=== PATIENT | male | born 1945 | race Caucasian/White ===

== ENCOUNTER → 2016-12-27 | Outpatient (REF) | payer MEDICARE ==
[~2016-12-27] MED LIST: APPL188C PO; ASPI1TAB PO; GRAP100C PO; LOSA50TA5 PO; OMEP40CA2 PO; VITA100L PO; [UNRECOGNIZED DRUG - OTHER]
[2016-12-27 17:15] LABS: ALBUMIN 3.9 GM/DL (3.2-5.2); ALBUMIN/GLOBULIN RATIO 1.18 (1.00-1.93); ALKALINE PHOSPHATASE 43 U/L (45-117); ALT/SGPT 74 U/L (12-78); ANION GAP 9 MEQ/L (8-16); AST/SGOT 33 U/L (15-37); BILIRUBIN,TOTAL 0.7 MG/DL (0.2-1.0); BLOOD UREA NITROGEN 18 MG/DL (7-18); CALCIUM LEVEL 8.9 MG/DL (8.8-10.2); CARBON DIOXIDE LEVEL 28 MEQ/L (21-32); CHLORIDE LEVEL 103 MEQ/L (98-107); CHOLESTEROL LEVEL 155 MG/DL (<200); CREATININE FOR GFR 1.23 MG/DL (0.70-1.30); GLOMERULAR FILTRATION RATE > 60.0 (>42); GLUCOSE, FASTING 117 MG/DL (83-110); POTASSIUM SERUM 3.8 MEQ/L (3.5-5.1); SODIUM LEVEL 140 MEQ/L (136-145); TOTAL PROTEIN 7.2 GM/DL (6.4-8.2); TRIGLYCERIDES LEVEL 88 MG/DL (<150)
[2016-12-27 18:59] LABS: MEAN CORPUSCULAR HEMOGLOBIN 34.3 pg (27.0-33.0); MEAN CORPUSCULAR VOLUME 95.5 fl (80.0-96.0); RED CELL DISTRIBUTION WIDTH 12.3 % (11.5-14.5); WHITE BLOOD COUNT 6.5 K/mm3 (4.0-10.0)
== END ==
LOC: M SFHCCLAY 10:39
PROVIDERS: ATTEND Family Medicine
DX: I10 Essential (primary) hypertension (principal); G47.33 Obstructive sleep apnea (adult) (pediatric)

== ENCOUNTER → 2017-01-16 | Outpatient (REF) | payer MEDICARE | LOC: M SFHCCLAY 11:28 | PROVIDERS: ATTEND Family Medicine | DX: Z12.5 Encounter for screening for malignant neoplasm of prostate (principal); E29.1 Testicular hypofunction | CPT/HCPCS: 84402; 84403; G0103 ==

== ENCOUNTER → 2017-05-01 | Outpatient (REF) | payer MEDICARE | LOC: M SFHCCLAY 13:10 | PROVIDERS: ATTEND Family Medicine | DX: R97.20 Elevated prostate specific antigen [PSA] (principal); D29.0 Benign neoplasm of penis; N48.89 Other specified disorders of penis; Z23 Encounter for immunization | CPT/HCPCS: 11100; 84153; 88305; 90662; G0008; G0463 ==

== ENCOUNTER → 2018-02-21 | Outpatient (REF) | payer MEDICARE ==
[2018-02-21 11:58] LABS: ALBUMIN 3.9 GM/DL (3.2-5.2); ALBUMIN/GLOBULIN RATIO 1.18 (1.00-1.93); ALKALINE PHOSPHATASE 47 U/L (45-117); ALT/SGPT 90 U/L (12-78); ANION GAP 5 MEQ/L (8-16); AST/SGOT 44 U/L (7-37); BILIRUBIN,TOTAL 0.9 MG/DL (0.2-1.0); BLOOD UREA NITROGEN 21 MG/DL (7-18); CALCIUM LEVEL 9.2 MG/DL (8.8-10.2); CARBON DIOXIDE LEVEL 34 MEQ/L (21-32); CHLORIDE LEVEL 105 MEQ/L (98-107); CHOLESTEROL LEVEL 149 MG/DL (<200); CHOLESTEROL RISK RATIO 2.568 (<5); CREATININE FOR GFR 1.15 MG/DL (0.70-1.30); GLOMERULAR FILTRATION RATE > 60.0 (>42); GLUCOSE, FASTING 107 MG/DL (70-100); HDL CHOLESTEROL 58 MG/DL (>40); LDL CHOLESTEROL 74.6 MG/DL (<100); NON-HDL-C 91 MG/DL; POTASSIUM SERUM 4.1 MEQ/L (3.5-5.1); SODIUM LEVEL 144 MEQ/L (136-145); TOTAL PROTEIN 7.2 GM/DL (6.4-8.2); TRIGLYCERIDES LEVEL 82 MG/DL (<150)
[2018-02-21 12:15] LABS: HEMATOCRIT 45.2 % (42.0-52.0); HEMOGLOBIN 15.8 g/dl (13.5-17.5); MEAN CORPUSCULAR HEMOGLOBIN 33.5 pg (27.0-33.0); MEAN CORPUSCULAR VOLUME 95.8 fl (80.0-96.0); PLATELET COUNT, AUTOMATED 189 10^3/uL (150-450); RED BLOOD COUNT 4.72 10^6/uL (4.30-6.10); RED CELL DISTRIBUTION WIDTH 12.4 % (11.5-14.5); WHITE BLOOD COUNT 5.3 10^3/uL (4.0-10.0)
== END ==
LOC: M SFHCCLAY 08:52
DX: M23.92 Unspecified internal derangement of left knee (principal); I10 Essential (primary) hypertension; G47.33 Obstructive sleep apnea (adult) (pediatric)
CPT/HCPCS: 80053

== ENCOUNTER → 2018-04-04 | Outpatient (REF) | payer MEDICARE ==
[2018-04-04 13:13] LABS: HEMOGLOBIN 16.4 g/dl (13.5-17.5); MEAN CORPUSCULAR HEMOGLOBIN 32.6 pg (27.0-33.0); MEAN CORPUSCULAR HGB CONC 34.9 g/dl (32.0-36.5); MEAN CORPUSCULAR VOLUME 93.4 fl (80.0-96.0); PLATELET COUNT, AUTOMATED 200 10^3/uL (150-450); RED BLOOD COUNT 5.03 10^6/uL (4.30-6.10); RED CELL DISTRIBUTION WIDTH 12.1 % (11.5-14.5)
[2018-04-04 14:14] LABS: TESTOSTERONE 162 NG/DL (241-827)
== END ==
LOC: M LABDRAWC 11:44
DX: E29.1 Testicular hypofunction (principal); Z79.899 Other long term (current) drug therapy
CPT/HCPCS: 84403

== ENCOUNTER → 2018-04-04 | Outpatient (REF) | payer MEDICARE ==
[2018-04-04 11:50] LABS: ESTIMATED AVERAGE GLUCOSE 105 MG/DL (60-110); HEMOGLOBIN A1c 5.3 %
[2018-04-04 12:10] LABS: ALBUMIN/GLOBULIN RATIO 1.21 (1.00-1.93); ALKALINE PHOSPHATASE 48 U/L (45-117); ALT/SGPT 74 U/L (12-78); ANION GAP 6 MEQ/L (8-16); AST/SGOT 42 U/L (7-37); BILIRUBIN,TOTAL 1.1 MG/DL (0.2-1.0); BLOOD UREA NITROGEN 21 MG/DL (7-18); CALCIUM LEVEL 8.9 MG/DL (8.8-10.2); CARBON DIOXIDE LEVEL 32 MEQ/L (21-32); CHLORIDE LEVEL 103 MEQ/L (98-107); CREATININE FOR GFR 1.17 MG/DL (0.70-1.30); GLOMERULAR FILTRATION RATE > 60.0 (>42); GLUCOSE, FASTING 108 MG/DL (70-100); POTASSIUM SERUM 3.9 MEQ/L (3.5-5.1); SODIUM LEVEL 141 MEQ/L (136-145); TOTAL PROTEIN 7.3 GM/DL (6.4-8.2)
== END ==
LOC: M SFHCCLAY 08:59
DX: R73.01 Impaired fasting glucose (principal); I10 Essential (primary) hypertension
CPT/HCPCS: 80053

== ENCOUNTER → 2018-12-05 | Outpatient (REF) | payer MEDICARE ==
[~2018-12-05] MED LIST changes: -ASPI1TAB PO; +ASPI81TA26 PO
[2018-12-05 11:47] LABS: HEMATOCRIT 46.3 % (42.0-52.0); HEMOGLOBIN 16.5 g/dl (13.5-17.5)
== END ==
LOC: M LABDRAWC 11:36
PROVIDERS: ATTEND Nurse Practitioner Family
DX: E29.1 Testicular hypofunction (principal)

== ENCOUNTER → 2018-12-05 | Outpatient (REF) | payer MEDICARE ==
[2018-12-05 11:44] LABS: HEMATOCRIT 46.3 % (42.0-52.0); HEMOGLOBIN 16.5 g/dl (13.5-17.5); MEAN CORPUSCULAR HEMOGLOBIN 33.4 pg (27.0-33.0); MEAN CORPUSCULAR HGB CONC 35.6 g/dl (32.0-36.5); MEAN CORPUSCULAR VOLUME 93.7 fl (80.0-96.0); PLATELET COUNT, AUTOMATED 219 10^3/uL (150-450); RED BLOOD COUNT 4.94 10^6/uL (4.30-6.10); WHITE BLOOD COUNT 7.9 10^3/uL (4.0-10.0)
[2018-12-05 12:19] LABS: ALBUMIN 3.8 GM/DL (3.2-5.2); ALT/SGPT 53 U/L (12-78); BILIRUBIN,TOTAL 0.7 MG/DL (0.2-1.0); BLOOD UREA NITROGEN 21 MG/DL (7-18); CARBON DIOXIDE LEVEL 28 MEQ/L (21-32); CHLORIDE LEVEL 105 MEQ/L (98-107); CHOLESTEROL LEVEL 142 MG/DL (<200); CHOLESTEROL RISK RATIO 2.679 (<5); CREATININE FOR GFR 1.04 MG/DL (0.70-1.30); GLOMERULAR FILTRATION RATE > 60.0 (>42); GLUCOSE, FASTING 104 MG/DL (70-100); HDL CHOLESTEROL 53 MG/DL (>40); LDL CHOLESTEROL 64 MG/DL (<100); NON-HDL-C 89 MG/DL; POTASSIUM SERUM 3.9 MEQ/L (3.5-5.1); SODIUM LEVEL 143 MEQ/L (136-145); TOTAL PROTEIN 7.3 GM/DL (6.4-8.2); TRIGLYCERIDES LEVEL 124 MG/DL (<150)
[2018-12-05 12:43] LABS: HEMOGLOBIN A1c 5.9 %
[2018-12-07 00:14] LABS: TESTOSTERONE FREE (DIRECT) 23.3 pg/mL (6.6-18.1)
== END ==
LOC: M SFHCCLAY 09:24
PROVIDERS: ATTEND Family Medicine
DX: I10 Essential (primary) hypertension (principal); G47.33 Obstructive sleep apnea (adult) (pediatric); M23.92 Unspecified internal derangement of left knee; R73.01 Impaired fasting glucose; Z12.5 Encounter for screening for malignant neoplasm of prostate; E29.1 Testicular hypofunction
CPT/HCPCS: 80053; 80061; 83036; 84402; 84403; 85014; 85018; 85027; 95117; G0103

== ENCOUNTER → 2019-01-02 | Outpatient (CLI) | payer MEDICARE ==
--- NOTE | 2019-01-02 15:51 | REP ---
Clinical: Cough . Comparison: 12/18/2014 . Technique: PA and lateral. Findings: The mediastinum and cardiac silhouette are normal. The lung reynaga are clear and without acute consolidation, effusion, or pneumothorax. Linear bibasilar scarring again noted. The skeletal structures are intact and normal. Impression: 1. No acute cardiopulmonary process.
== END ==
LOC: M CLY 15:20
PROVIDERS: ATTEND Nurse Practitioner Adult Health
DX: R05 Cough (principal)

== ENCOUNTER 2019-03-03 09:07 | Day surgery (SDC) | payer MEDICARE ==
[~2019-03-03] VITALS: Ht 182.9 cm; Wt 93.0 kg
[~2019-03-03 09:07] MED LIST changes: +ALLERGY SHOT INJ; +GRAP50CA3 PO; +LOSA100T8 PO; +MULTTAB86 PO; -OMEP40CA2 PO; +OMEP40CA97 PO; +PROBCAP14 PO; +TEST5GEL TOP
[2019-03-03] MEDS ORDERED: NS 1,000 ML IV ONE (10:00)
[2019-03-03] MEDS ORDERED: LIDOCAINE 2% INJ 100 MG/5 ML SDV (FOR ANES.) As Ordered ONE (10:05)
[2019-03-03] MEDS ORDERED: propofoL 200 MG/20 ML VIAL As Ordered ONE ×3 (10:05→10:38)
--- NOTE | 2019-03-03 10:42 | ROOR ---
Patient Name: Guanaco Ross Procedure Date: 03/03/2019 10:19 AM Date of : 1945 Age: 73 Room: [facility] Gender: Male Note Status: Finalized Procedure: Upper GI endoscopy Indications: Heartburn, Follow-up of polyps in the duodenum Providers: Miguelito RAYO MD Referring MD: Marc Munoz MD Requesting Provider: Medicines: Monitored Anesthesia Care Complications: No immediate complications. Procedure: Pre-Anesthesia Assessment: - The heart rate, respiratory rate, oxygen saturations, blood pressure, adequacy of pulmonary ventilation, and response to care were monitored throughout the procedure. The Endoscope was introduced through the mouth, and advanced to the second part of duodenum. The upper GI endoscopy was accomplished without difficulty. The patient tolerated the procedure well. Findings: The examined esophagus was normal. The entire examined stomach was normal. (large compliant) A single 4 mm mucosal nodule was found in the second portion of the duodenum. The polyp was removed with a cold snare. Resection and retrieval were complete. The exam of the duodenum was otherwise normal. Impression: - Normal esophagus. - Normal stomach. - A small polyp found in the duodenum. Removed with cold snare polypectomy snare. Resection and retrieval was complete. - The duodenum is otherwise normal. Recommendation: - Continue present medications. - Telephone endoscopist for pathology results in 2 weeks. - Follow an antireflux regimen. Miguelito Rayo MD Miguelito RAYO MD 03/03/2019 10:42:41 AM Electronically signed by Miguelito RAYO MD Number of Addenda: 0 Note Initiated On: 03/03/2019 10:19 AM Estimated Blood Loss: Estimated blood loss: none.
--- NOTE | 2019-03-03 11:05 | ROOR ---
Patient Name: Guanaco Ross Procedure Date: 03/03/2019 10:20 AM Date of : 1945 Age: 73 Room: [facility] Gender: Male Note Status: Finalized Procedure: Colonoscopy Indications: Change in bowel habits Providers: Miguelito RAYO MD Referring MD: Marc Munoz MD Requesting Provider: Medicines: Monitored Anesthesia Care Complications: No immediate complications. Procedure: Pre-Anesthesia Assessment: - The heart rate, respiratory rate, oxygen saturations, blood pressure, adequacy of pulmonary ventilation, and response to care were monitored throughout the procedure. The Colonoscope was introduced through the anus and advanced to the cecum, identified by appendiceal orifice and ileocecal valve. The colonoscopy was performed without difficulty. The patient tolerated the procedure well. The quality of the bowel preparation was good. Findings: The perianal and digital rectal examinations were normal. Four sessile polyps were found in the hepatic flexure, ascending colon and cecum. The polyps were 4 to 5 mm in size. These polyps were removed with a cold snare. Resection and retrieval were complete. Internal hemorrhoids were found during retroflexion. The hemorrhoids were medium-sized. The exam was otherwise without abnormality on direct and retroflexion views. Impression: - Four 4 to 5 mm polyps at the hepatic flexure, in the ascending colon and in the cecum, removed with a cold snare. Resected and retrieved. - Internal hemorrhoids. - The colonoscopy was otherwise normal on direct and retroflexion views. Recommendation: - Await pathology results. - Repeat colonoscopy in 3 - 5 years for surveillance. - Telephone endoscopist for pathology results in 2 weeks. Miguelito Rayo MD Miguelito RAYO MD 03/03/2019 11:04:49 AM Electronically signed by Miguelito RAYO MD Number of Addenda: 0 Note Initiated On: 03/03/2019 10:20 AM Estimated Blood Loss: Estimated blood loss: none.
[2019-03-03 11:36] VITALS: BP 165/60
== END 2019-03-03 11:41 | disposition home or self-care (01) ==
LOC: M OPP 09:07
PROVIDERS: ATTEND Internal Medicine Gastroenterology
DX: D12.3 Benign neoplasm of transverse colon (principal); D12.2 Benign neoplasm of ascending colon; D12.0 Benign neoplasm of cecum; K64.8 Other hemorrhoids; R19.4 Change in bowel habit; K31.89 Other diseases of stomach and duodenum; R12 Heartburn; K31.7 Polyp of stomach and duodenum; G47.30 Sleep apnea, unspecified; Z79.82 Long term (current) use of aspirin; Z79.899 Other long term (current) drug therapy; Z87.891 Personal history of nicotine dependence

== ENCOUNTER 2019-03-30 13:53 | Emergency (ER) | payer MEDICARE ==
[~2019-03-30] VITALS: Ht 172.7 cm; Wt 94.4 kg
[~2019-03-30 13:53] MED LIST changes: +OMEP40CA2 PO; -OMEP40CA97 PO
[2019-03-30] MEDS ORDERED: LOSARTAN 50 MG TAB PO ONE (15:30)
[2019-03-30] MEDS ORDERED: hydroCHLOROthiazide 12.5 MG CAPSULE PO ONE (15:30)
[2019-03-30] MEDS ORDERED: ASPIRIN 81 MG CHEW TABLET PO ONE (15:45)
[2019-03-30 15:57] LABS: BASO % 0.4 % (0.0-1.0); EOS # 0.1 10^3/uL (0.0-0.5); EOS % 1.4 % (0.0-3.0); HEMATOCRIT 41.3 % (42.0-52.0); HEMOGLOBIN 14.9 g/dl (13.5-17.5); LYMPH # 1.9 10^3/uL (1.5-5.0); LYMPH % 23.6 % (24.0-44.0); MEAN CORPUSCULAR HEMOGLOBIN 33.7 pg (27.0-33.0); MEAN CORPUSCULAR HGB CONC 36.1 g/dl (32.0-36.5); MEAN CORPUSCULAR VOLUME 93.4 fl (80.0-96.0); MONO # 0.6 10^3/uL (0.0-0.8); MONO % 7.4 % (0.0-5.0); NEUTROPHILS # 5.3 10^3/uL (1.5-8.5); NEUTROPHILS % 66.8 % (36.0-66.0); PLATELET COUNT, AUTOMATED 166 10^3/uL (150-450); RED BLOOD COUNT 4.42 10^6/uL (4.30-6.10); WHITE BLOOD COUNT 7.9 10^3/uL (4.0-10.0)
[2019-03-30 16:09] LABS: INR 1.12; PROTHROMBIN TIME 14.1 SECONDS (11.8-14.0)
[2019-03-30 16:10] LABS: PARTIAL THROMBOPLASTIN TIME 30.9 SECONDS (25.0-38.4)
[2019-03-30 16:13] LABS: D-DIMER QUANT 327.55 ng/ml (<500)
[2019-03-30 16:17] LABS: CK-MB VALUE MASS < 1.0 NG/ML (<3.6); CPK CREATINE PHOSPHOKINASE 97 U/L (39-308); MB/CK RELATIVE INDEX 1.03 (< OR =4); TROPONIN I < 0.02 NG/ML (< 0.10)
--- NOTE | 2019-03-30 16:38 | ECGEPIP ---
[facility] - ED Test Date: 2019-03-30 Pat Name: YOANA DOTSON Department: Room: - Gender: Male Assigner: [id number] : 1945 Requested By: ROSAURA HYLTON PA-C. Order Number: [id number] Reading MD: Stephanie Acuna Measurements Intervals [place] Rate: 64 P: 33 DC: 159 QRS: -1 QRSD: 104 T: 30 QT: 390 QTc: 402 Interpretive Statements SINUS RHYTHM INFERIOR MYOCARDIAL INFARCTION, PROBABLY OLD NO PRIOR Electronically Signed on 03-30-2019 16:38:26 EDT by Stephanie Acuna
--- NOTE | 2019-03-30 16:43 | REP ---
The left upper extremity duplex Doppler venous ultrasound. Real time compression and duplex Doppler evaluation of the left upper extremity deep venous system is performed. The left subclavian, jugular, axillary, brachial, basilic and cephalic veins are fully compressible where accessible with transducer pressure, and demonstrate no intraluminal thrombus and normal venous waveforms. There is no evidence of deep venous thrombosis. Impression: No evidence of deep venous thrombosis of the left upper extremity deep vein system. Electronically Signed by Jimbo Feliz MD 03/30/2019 04:35 P
[2019-03-30 17:43] VITALS: BP 166/88
[2019-03-30 18:15] LABS: CK-MB VALUE MASS < 1.0 NG/ML (<3.6); CPK CREATINE PHOSPHOKINASE 94 U/L (39-308); MB/CK RELATIVE INDEX 1.06 (< OR =4); TROPONIN I < 0.02 NG/ML (< 0.10)
== END 2019-03-30 18:29 | disposition home or self-care (01) ==
LOC: M ED 13:53
DX: M79.602 Pain in left arm (principal); I10 Essential (primary) hypertension; G47.33 Obstructive sleep apnea (adult) (pediatric); Z87.891 Personal history of nicotine dependence; Z91.048 Other nonmedicinal substance allergy status; Z79.899 Other long term (current) drug therapy; Z79.82 Long term (current) use of aspirin

== ENCOUNTER → 2019-04-03 | Outpatient (REF) | payer MEDICARE ==
[2019-04-03 18:16] LABS: HEMATOCRIT 45.1 % (42.0-52.0)
== END ==
LOC: M LABDRAWC 17:12
PROVIDERS: ATTEND Nurse Practitioner Family
DX: E29.1 Testicular hypofunction (principal)
CPT/HCPCS: 36415; 84403; 85014; 85018; 95117; G0103

== ENCOUNTER → 2019-04-29 | Outpatient (REF) | payer MEDICARE ==
[~2019-04-29] MED LIST changes: -OMEP40CA2 PO; +OMEP40CA97 PO
[2019-05-02 00:10] LABS: Lyme Disease IgG/IgM Antibodie <0.91 ISR (0.00-0.90); Lyme Disease IgM Ab Quantitati <0.80 index (0.00-0.79)
== END ==
LOC: M SFHCCLAY 10:51
PROVIDERS: ATTEND Family Medicine
DX: Z20.9 Contact with and (suspected) exposure to unspecified communicable disease (principal); W57.XXXA Bitten or stung by nonvenomous insect and other nonvenomous arthropods, initial encounter

== ENCOUNTER → 2019-12-25 | Outpatient (REF) | payer MEDICARE ==
[2019-12-25 16:29] LABS: HEMATOCRIT 44.6 % (42.0-52.0); HEMOGLOBIN 15.5 g/dl (13.5-17.5)
== END ==
LOC: M LABDRAWC 15:52
PROVIDERS: ATTEND Nurse Practitioner Family
DX: E29.1 Testicular hypofunction (principal)

== ENCOUNTER → 2019-12-25 | Outpatient (REF) | payer MEDICARE ==
[2019-12-25 16:27] LABS: HEMATOCRIT 44.6 % (42.0-52.0); HEMOGLOBIN 15.8 g/dl (13.5-17.5); MEAN CORPUSCULAR HEMOGLOBIN 33.7 pg (27.0-33.0); MEAN CORPUSCULAR HGB CONC 35.4 g/dl (32.0-36.5); MEAN CORPUSCULAR VOLUME 95.1 fl (80.0-96.0); PLATELET COUNT, AUTOMATED 179 10^3/uL (150-450); RED BLOOD COUNT 4.69 10^6/uL (4.30-6.10); WHITE BLOOD COUNT 6.3 10^3/uL (4.0-10.0)
[2019-12-25 16:56] LABS: ALT/SGPT 24 U/L (12-78); BILIRUBIN,TOTAL 0.6 MG/DL (0.2-1.0); BLOOD UREA NITROGEN 23 MG/DL (7-18); CALCIUM LEVEL 9.3 MG/DL (8.8-10.2); CARBON DIOXIDE LEVEL 29 MEQ/L (21-32); CHLORIDE LEVEL 104 MEQ/L (98-107); CHOLESTEROL LEVEL 148 MG/DL (<200); CHOLESTEROL RISK RATIO 2.426 (<5); CREATININE FOR GFR 1.01 MG/DL (0.70-1.30); GLOMERULAR FILTRATION RATE > 60.0 (>42); GLUCOSE, FASTING 119 MG/DL (70-100); HDL CHOLESTEROL 61 MG/DL (>40); LDL CHOLESTEROL 74 MG/DL (<100); NON-HDL-C 87 MG/DL; SODIUM LEVEL 140 MEQ/L (136-145); TOTAL PROTEIN 7.2 GM/DL (6.4-8.2); TRIGLYCERIDES LEVEL 67 MG/DL (<150)
== END ==
LOC: M SFHCCLAY 10:24
PROVIDERS: ATTEND Family Medicine
DX: I10 Essential (primary) hypertension (principal); Z12.5 Encounter for screening for malignant neoplasm of prostate; Z11.59 Encounter for screening for other viral diseases
CPT/HCPCS: 36415; 80053; 80061; 84403; 85014; 85018; 85027; G0103; U0003

== ENCOUNTER → 2020-01-01 | Outpatient (CLI) | payer MEDICARE ==
--- NOTE | 2020-01-01 16:23 | REP ---
CHEST, THREE VIEWS: PA and lateral views of the chest performed as well as an apical lordotic view. Comparison is made with a prior study of 01/02/2019. Bibasilar linear fibrosis is stable. There is no acute infiltrate or pulmonary edema. The heart is normal in size. The mediastinal silhouette is unchanged. There are degenerative changes of the spine. IMPRESSION: Stable chronic findings with no evidence of acute pulmonary disease. Electronically Signed by Jimbo Feliz MD 01/02/2020 01:15 P
== END ==
LOC: M CLY 14:37
PROVIDERS: ATTEND Family Medicine
DX: M25.511 Pain in right shoulder (principal); R07.9 Chest pain, unspecified

== ENCOUNTER → 2020-03-08 | Outpatient (REF) | payer MEDICARE | LOC: M LAB REF 18:55 | PROVIDERS: ATTEND Surgery | DX: L72.3 Sebaceous cyst (principal) ==

== ENCOUNTER → 2020-04-13 | Outpatient (REF) | payer MEDICARE ==
[2020-04-13 16:46] LABS: HEMATOCRIT 41.4 % (42.0-52.0); HEMOGLOBIN 14.3 g/dl (13.5-17.5)
== END ==
LOC: M LABDRAWC 16:08
PROVIDERS: ATTEND Nurse Practitioner Family
DX: E29.1 Testicular hypofunction (principal); Z12.5 Encounter for screening for malignant neoplasm of prostate
CPT/HCPCS: 36415; 84403; 85014; 85018; G0103

== ENCOUNTER → 2020-12-07 | Outpatient (REF) | payer MEDICARE | LOC: M LAB REF 19:17 | PROVIDERS: ATTEND Dermatology | DX: C44.509 Unspecified malignant neoplasm of skin of other part of trunk (principal); L57.0 Actinic keratosis ==

== ENCOUNTER → 2020-12-13 | Outpatient (REF) | payer MEDICARE ==
[2020-12-13 12:03] LABS: HEMOGLOBIN 14.7 g/dl (13.5-17.5); MEAN CORPUSCULAR HEMOGLOBIN 32.7 pg (27.0-33.0); MEAN CORPUSCULAR HGB CONC 34.2 g/dl (32.0-36.5); MEAN CORPUSCULAR VOLUME 95.8 fl (80.0-96.0); PLATELET COUNT, AUTOMATED 182 10^3/uL (150-450); RED BLOOD COUNT 4.49 10^6/uL (4.30-6.10); WHITE BLOOD COUNT 9.4 10^3/uL (4.0-10.0)
[2020-12-13 12:33] LABS: ALBUMIN 3.6 GM/DL (3.2-5.2); ALT/SGPT 17 U/L (12-78); BILIRUBIN,TOTAL 0.7 MG/DL (0.2-1.0); BLOOD UREA NITROGEN 25 MG/DL (7-18); CARBON DIOXIDE LEVEL 29 MEQ/L (21-32); CHLORIDE LEVEL 102 MEQ/L (98-107); CHOLESTEROL LEVEL 129 MG/DL (<200); CHOLESTEROL RISK RATIO 2.114 (<5); CREATININE FOR GFR 1.02 MG/DL (0.70-1.30); GLOMERULAR FILTRATION RATE > 60.0 (>42); GLUCOSE, FASTING 98 MG/DL (70-100); HDL CHOLESTEROL 61 MG/DL (>40); LDL CHOLESTEROL 55 MG/DL (<100); NON-HDL-C 68 MG/DL; POTASSIUM SERUM 3.6 MEQ/L (3.5-5.1); SODIUM LEVEL 139 MEQ/L (136-145); TOTAL PROTEIN 6.6 GM/DL (6.4-8.2); TRIGLYCERIDES LEVEL 63 MG/DL (<150)
[2020-12-13 12:38] LABS: FOLLICLE STIMULATING HORMONE 0.5 mIU/mL (1.4-18.1); LUTEINIZING HORMONE < 0.1 mIU/mL (3.1-34.6)
== END ==
LOC: M SFHCCLAY 09:08
PROVIDERS: ATTEND Family Medicine
DX: Z00.00 Encounter for general adult medical examination without abnormal findings (principal); I10 Essential (primary) hypertension; J30.89 Other allergic rhinitis; N52.1 Erectile dysfunction due to diseases classified elsewhere; R73.01 Impaired fasting glucose

== ENCOUNTER → 2020-12-31 | Outpatient (CLI) | payer MEDICARE ==
[~2020-12-31] MED LIST changes: +OMEP40CA4 PO; -OMEP40CA97 PO
--- NOTE | 2020-12-31 17:55 | REPVR ---
PROCEDURE INFORMATION: Exam: MR Head Without Contrast Exam date and time: 12/31/2020 2:31 PM Age: 75 years old Clinical indication: Condition or disease; Other: Subdural hematoma, lacunar stroke TECHNIQUE: Imaging protocol: MR of the head without contrast. COMPARISON: MRI-Spine,Cervical without con 12/22/2015 5:33 PM FINDINGS: No abnormal restriction of diffusion to indicate acute CVA. Midline structures and cerebellar tonsillar position appear normal. Ventricles, cisterns and sulci are symmetric and normal for age. No intracranial mass, midline shift or abnormal extra-axial fluid. Right the hemispheric convexity subdural hemorrhage measuring 18 mm transverse and 11 cm AP, hyperintense increased signal on FLAIR, I so to hypointense on T1 and hyperintense on T2. Mild pattern of increased T2 and flair signal in supratentorial white matter. Optic chiasm and pituitary infundibulum appear normal. Normal vascular flow voids in major intracranial arteries and dural venous sinuses. Paranasal sinuses are normally aerated. Mastoid air cells are normally aerated. Optic globes and orbits are unremarkable. IMPRESSION: Right hemispheric convexity subdural hemorrhage measuring 18 mm transverse and 11 cm AP without midline shift. Signal characteristics suggest that this may be greater than 14-day-old. Correlation with noncontrast head CT is recommended Electronically signed by: Sukhi Davies On 12/31/2020 17:55:01 PM
== END ==
LOC: M PLARAD 12:40
PROVIDERS: ATTEND Family Medicine
DX: S06.5X9A Traumatic subdural hemorrhage with loss of consciousness of unspecified duration, initial encounter (principal); W18.30XA Fall on same level, unspecified, initial encounter; Y92.009 Unspecified place in unspecified non-institutional (private) residence as the place of occurrence of the external cause

== ENCOUNTER → 2021-01-24 | Outpatient (REF) | payer MEDICARE ==
[2021-01-24 12:54] LABS: HEMATOCRIT 40.4 % (42.0-52.0); HEMOGLOBIN 13.8 g/dl (13.5-17.5)
== END ==
LOC: M LABDRAWC 12:02
PROVIDERS: ATTEND Nurse Practitioner Family
DX: E29.1 Testicular hypofunction (principal)
CPT/HCPCS: 36415; 84403; 85014; 85018; G0103

== ENCOUNTER → 2021-05-18 | Outpatient (REF) | payer MEDICARE ==
[2021-05-18 16:37] LABS: BASO % 0.5 % (0.0-1.0); EOS # 0.3 10^3/uL (0.0-0.5); EOS % 4.2 % (0.0-3.0); HEMOGLOBIN 14.8 g/dl (13.5-17.5); LYMPH # 1.8 10^3/uL (1.5-5.0); LYMPH % 26.9 % (24.0-44.0); MEAN CORPUSCULAR HEMOGLOBIN 32.4 pg (27.0-33.0); MEAN CORPUSCULAR HGB CONC 34.4 g/dl (32.0-36.5); MEAN CORPUSCULAR VOLUME 94.1 fl (80.0-96.0); MONO # 0.6 10^3/uL (0.0-0.8); MONO % 8.6 % (2.0-8.0); NEUTROPHILS # 3.9 10^3/uL (1.5-8.5); NEUTROPHILS % 59.5 % (36.0-66.0); PLATELET COUNT, AUTOMATED 199 10^3/uL (150-450); RED BLOOD COUNT 4.57 10^6/uL (4.30-6.10); WHITE BLOOD COUNT 6.5 10^3/uL (4.0-10.0)
[2021-05-18 17:13] LABS: ALBUMIN 3.8 GM/DL (3.2-5.2); ALT/SGPT 22 U/L (12-78); BILIRUBIN,TOTAL 0.7 MG/DL (0.2-1.0); BLOOD UREA NITROGEN 23 MG/DL (7-18); CALCIUM LEVEL 9.8 MG/DL (8.8-10.2); CARBON DIOXIDE LEVEL 31 MEQ/L (21-32); CHLORIDE LEVEL 105 MEQ/L (98-107); GLOMERULAR FILTRATION RATE > 60.0 (>42); GLUCOSE, FASTING 105 MG/DL (70-100); POTASSIUM SERUM 4.1 MEQ/L (3.5-5.1); SODIUM LEVEL 141 MEQ/L (136-145)
== END ==
LOC: M SFHCCLAY 09:15
PROVIDERS: ATTEND Physician Assistant
DX: R19.7 Diarrhea, unspecified (principal)
CPT/HCPCS: 80053; 85025; 87505; 95117; G0463

== ENCOUNTER → 2021-05-27 | Outpatient (REF) | payer MEDICARE ==
[2021-05-27 16:51] LABS: FREE T4 1.02 NG/DL (0.76-1.46); THYROID STIMULATING HORMONE 2.37 uIU/ML (0.358-3.740)
[2021-06-05 23:07] LABS: CALPROTECTIN STOOL 223 ug/g (0-120); FATS NEUTRAL Normal (.); FATS TOTAL Normal (.); PANCREATIC ELASTASE STOOL 149 (>200)
== END ==
LOC: M LABDRAWC 15:30
PROVIDERS: ATTEND Physician Assistant Medical
DX: R19.7 Diarrhea, unspecified (principal)
CPT/HCPCS: 36415; 82656; 82705; 82784; 83516; 83993; 84439; 84443; 87505; G0463

== ENCOUNTER → 2021-12-09 | Outpatient (REF) | payer MEDICARE ==
[2021-12-09 16:26] LABS: HEMATOCRIT 43.9 % (42.0-52.0); HEMOGLOBIN 15.5 g/dl (13.5-17.5); MEAN CORPUSCULAR HEMOGLOBIN 32.9 pg (27.0-33.0); MEAN CORPUSCULAR HGB CONC 35.3 g/dl (32.0-36.5); MEAN CORPUSCULAR VOLUME 93.2 fl (80.0-96.0); PLATELET COUNT, AUTOMATED 212 10^3/uL (150-450); RED BLOOD COUNT 4.71 10^6/uL (4.30-6.10); WHITE BLOOD COUNT 6.1 10^3/uL (4.0-10.0)
== END ==
LOC: M LABDRAWC 11:29
PROVIDERS: ATTEND Internal Medicine Endocrinology, Diabetes & Metabolism
DX: E29.1 Testicular hypofunction (principal); R97.20 Elevated prostate specific antigen [PSA]

== ENCOUNTER → 2021-12-12 | Outpatient (REF) | payer MEDICARE | LOC: M SFHCDERM 15:01 | PROVIDERS: ATTEND Physician Assistant | DX: L57.0 Actinic keratosis (principal) ==

== ENCOUNTER → 2022-01-10 | Outpatient (REF) | payer MEDICARE ==
[2022-01-12 15:23] LABS: CREATININE FOR GFR 1.25 MG/DL (0.70-1.30); GLOMERULAR FILTRATION RATE 59.9 (>42)
== END ==
LOC: M LABDRAWC 16:08
PROVIDERS: ATTEND Physician Assistant Medical
DX: K86.81 Exocrine pancreatic insufficiency (principal)

== ENCOUNTER → 2022-01-13 | Outpatient (CLI) | payer MEDICARE ==
[~2022-01-13] MED LIST changes: +GASTROGRAFIN SOLUTION 30ML (Q9963) As Ordered ONE; +ISOVUE-370 76% 100ML VIAL As Ordered ONE
== END ==
LOC: M RAD 11:54
PROVIDERS: ATTEND Physician Assistant Medical
DX: K86.81 Exocrine pancreatic insufficiency (principal)
CPT/HCPCS: 74170; Q9963; Q9967

== ENCOUNTER → 2022-01-16 | Outpatient (CLI) | payer MEDICARE ==
[~2022-01-16] MED LIST changes: -GASTROGRAFIN SOLUTION 30ML (Q9963) As Ordered ONE; -ISOVUE-370 76% 100ML VIAL As Ordered ONE
== END ==
LOC: M LABSMTC 10:19
PROVIDERS: ATTEND Anesthesiology
DX: Z01.818 Encounter for other preprocedural examination (principal); Z11.52 Encounter for screening for COVID-19

== ENCOUNTER → 2022-02-20 | Outpatient (CLI) | payer MEDICARE ==
[~2022-02-20] MED LIST changes: +OMEP-173 PO
== END ==
LOC: M LABSMTC 10:53
PROVIDERS: ATTEND Anesthesiology
DX: Z01.812 Encounter for preprocedural laboratory examination (principal)

== ENCOUNTER 2022-02-24 08:15 | Day surgery (SDC) | payer MEDICARE ==
[~2022-02-24] VITALS: Ht 172.7 cm; Wt 76.6 kg
[~2022-02-24 08:15] MED LIST changes: +NS 1,000 ML IV ONE
[2022-02-24] MEDS ORDERED: LIDOCAINE 2% 100MG/5ML SDV (FOR ANES.) As Ordered ONE (08:20)
[2022-02-24] MEDS ORDERED: fentaNYL 100 MCG/2 ML INJECTION As Ordered ONE (08:20)
[2022-02-24] MEDS ORDERED: propofoL 500 MG/50 ML VIAL As Ordered ONE (08:20)
[2022-02-24] MEDS ORDERED: CREO3600 PO (08:58)
[2022-02-24 11:04] VITALS: BP 157/76
== END 2022-02-24 11:05 | disposition home or self-care (01) ==
LOC: M OPP 08:15
PROVIDERS: ATTEND Internal Medicine Gastroenterology
DX: Z12.11 Encounter for screening for malignant neoplasm of colon (principal); Z86.010 Personal history of colon polyps; K63.5 Polyp of colon; Z80.0 Family history of malignant neoplasm of digestive organs; K64.8 Other hemorrhoids; K31.7 Polyp of stomach and duodenum; Z09 Encounter for follow-up examination after completed treatment for conditions other than malignant neoplasm; G47.33 Obstructive sleep apnea (adult) (pediatric); I10 Essential (primary) hypertension; Z79.818 Long term (current) use of other agents affecting estrogen receptors and estrogen levels; Z79.899 Other long term (current) drug therapy; Z86.16 Personal history of COVID-19; Z85.818 Personal history of malignant neoplasm of other sites of lip, oral cavity, and pharynx; Z82.0 Family history of epilepsy and other diseases of the nervous system; Z87.891 Personal history of nicotine dependence
CPT/HCPCS: 43235; 45385; 88305; J3010

== ENCOUNTER → 2022-04-18 | Outpatient (REF) | payer MEDICARE ==
[~2022-04-18] MED LIST changes: +CREO3600 PO; -NS 1,000 ML IV ONE
[2022-04-18 17:59] LABS: HEMOGLOBIN 14.3 g/dl (13.5-17.5)
== END ==
LOC: M LABDRAWC 17:00
PROVIDERS: ATTEND Nurse Practitioner Family
DX: E29.1 Testicular hypofunction (principal)

== ENCOUNTER → 2022-11-30 | Outpatient (REF) | payer MEDICARE ==
[2022-11-30 12:03] LABS: HEMATOCRIT 42.9 % (42.0-52.0); HEMOGLOBIN 14.9 g/dl (13.5-17.5); MEAN CORPUSCULAR HEMOGLOBIN 32.8 pg (27.0-33.0); MEAN CORPUSCULAR HGB CONC 34.7 g/dl (32.0-36.5); MEAN CORPUSCULAR VOLUME 94.5 fl (80.0-96.0); PLATELET COUNT, AUTOMATED 179 10^3/uL (150-450); RED BLOOD COUNT 4.54 10^6/uL (4.30-6.10); WHITE BLOOD COUNT 5.5 10^3/uL (4.0-10.0)
[2022-11-30 12:28] LABS: ALBUMIN 4.1 G/DL (3.2-5.2); ALKALINE PHOSPHATASE 43 U/L (46-116); ALT/SGPT 15 U/L (7.0-40); AST/SGOT 13 U/L (<34); BILIRUBIN,TOTAL 0.9 MG/DL (0.3-1.2); BLOOD UREA NITROGEN 17 MG/DL (9-23); CALCIUM LEVEL 9.6 MG/DL (8.3-10.6); CARBON DIOXIDE LEVEL 32 MMOL/L (20-31); CHLORIDE LEVEL 104 MMOL/L (98-107); CHOLESTEROL LEVEL 140 MG/DL (<200); CHOLESTEROL RISK RATIO 1.96 (<5); CREATININE FOR GFR 0.99 MG/DL (0.70-1.30); GLOMERULAR FILTRATION RATE > 60.0 (>42); GLUCOSE, FASTING 105 MG/DL (74-106); HDL CHOLESTEROL 71.3 MG/DL (>40); LDL CHOLESTEROL 56.1 MG/DL (<100); NON-HDL-C 68.7 MG/DL; SODIUM LEVEL 141 MMOL/L (136-145); TOTAL PROTEIN 6.8 G/DL (5.7-8.2); TRIGLYCERIDES LEVEL 63 MG/DL (<150)
== END ==
LOC: M SFHCCLAY 09:18
PROVIDERS: ATTEND Family Medicine
DX: I10 Essential (primary) hypertension (principal); G47.33 Obstructive sleep apnea (adult) (pediatric); K21.9 Gastro-esophageal reflux disease without esophagitis; Z12.5 Encounter for screening for malignant neoplasm of prostate; R73.01 Impaired fasting glucose

== ENCOUNTER → 2022-11-30 | Outpatient (REF) | payer MEDICARE ==
[2022-11-30 12:03] LABS: HEMATOCRIT 42.8 % (42.0-52.0); HEMOGLOBIN 14.9 g/dl (13.5-17.5)
== END ==
LOC: M LABDRAWC 11:17
PROVIDERS: ATTEND Nurse Practitioner Family
DX: E29.1 Testicular hypofunction (principal); Z79.899 Other long term (current) drug therapy
CPT/HCPCS: 36415; 80053; 80061; 83036; 84403; 85014; 85018; 85027; G0103

== ENCOUNTER → 2023-03-22 | Outpatient (REF) | payer MEDICARE ==
[2023-03-22 19:14] LABS: HEMATOCRIT 43.9 % (42.0-52.0); HEMOGLOBIN 15.2 g/dl (13.5-17.5)
== END ==
LOC: M LABDRAWC 17:34
PROVIDERS: ATTEND Nurse Practitioner Family
DX: E29.1 Testicular hypofunction (principal)

== ENCOUNTER → 2023-04-26 | Outpatient (REF) | payer MEDICARE ==
[2023-04-26 17:38] LABS: APPEARANCE, URINE CLEAR (CLEAR); BACTERIA, URINE AUTO NEGATIVE (NEGATIVE); BILIRUBIN, URINE AUTO NEGATIVE (NEGATIVE); BLOOD, URINE BLOOD NEGATIVE (NEGATIVE); COLOR, URINE YELLOW (YELLOW); GLUCOSE, URINE (UA) AUTO NEGATIVE (NEGATIVE); KETONE, URINE AUTO TRACE mg/dL (NEGATIVE); LEUKOCYTE ESTERASE, URINE AUTO NEGATIVE (NEGATIVE); MUCUS, URINE SMALL (NEGATIVE); NITRITE, URINE AUTO NEGATIVE (NEGATIVE); PROTEIN, URINE AUTO NEGATIVE (NEGATIVE); RBC, URINE AUTO 1 /HPF (0-3); SPECIFIC GRAVITY URINE AUTO 1.026 (1.002-1.035); SQUAMOUS EPITHELIAL CELL UR AU 0 /HPF (0-6); WBC, URINE AUTO 1 /HPF (0-3)
== END ==
LOC: M SFHCCLAY 13:08
PROVIDERS: ATTEND Physician Assistant
DX: R30.0 Dysuria (principal)

== ENCOUNTER → 2023-05-01 | Outpatient (CLI) | payer MEDICARE ==
[~2023-05-01] MED LIST changes: +ISOVUE-300 61% 100ML VIAL As Ordered ONE; +LIDOCAINE 1% MDV 20ML VIAL As Ordered ONE; +methylPREDNISolone SUSP 40MG/ML 1ML VIAL (DEPO MEDROL) As Ordered ONE
== END ==
LOC: M RAD 13:42
PROVIDERS: ATTEND Physician Assistant
DX: M19.011 Primary osteoarthritis, right shoulder (principal); M19.012 Primary osteoarthritis, left shoulder
CPT/HCPCS: 20610; 77002; J1030; Q9967

== ENCOUNTER → 2023-11-29 | Outpatient (REF) | payer MEDICARE ==
[~2023-11-29] MED LIST changes: -ISOVUE-300 61% 100ML VIAL As Ordered ONE; -LIDOCAINE 1% MDV 20ML VIAL As Ordered ONE; -methylPREDNISolone SUSP 40MG/ML 1ML VIAL (DEPO MEDROL) As Ordered ONE
== END ==
LOC: M SFHCCLAY 09:06
PROVIDERS: ATTEND Physician Assistant
DX: R35.0 Frequency of micturition (principal)

== ENCOUNTER → 2023-12-11 | Outpatient (REF) | payer MEDICARE ==
[2023-12-11 18:35] LABS: HEMATOCRIT 42.4 % (42.0-52.0); HEMOGLOBIN 14.8 g/dl (13.5-17.5)
[2023-12-11 18:51] LABS: PROSTATIC SPECIFIC AG MONITOR 5.76 NG/ML (< 4.00)
== END ==
LOC: M LABDRAWC 16:53
PROVIDERS: ATTEND Nurse Practitioner Family
DX: E29.1 Testicular hypofunction (principal); R97.20 Elevated prostate specific antigen [PSA]

== ENCOUNTER → 2023-12-13 | Outpatient (REF) | payer MEDICARE | LOC: M SFHCCLAY 16:32 | PROVIDERS: ATTEND Physician Assistant | DX: R30.0 Dysuria (principal) ==

== ENCOUNTER → 2023-12-25 | Outpatient (CLI) | payer MEDICARE | LOC: M RAD 12:40 | PROVIDERS: ATTEND Family Medicine | DX: R19.09 Other intra-abdominal and pelvic swelling, mass and lump (principal) ==

== ENCOUNTER → 2024-01-03 | Outpatient (CLI) | payer MEDICARE | LOC: M RAD 10:48 | PROVIDERS: ATTEND Family Medicine | DX: R19.09 Other intra-abdominal and pelvic swelling, mass and lump (principal) ==

== ENCOUNTER → 2024-01-04 | Outpatient (CLI) | payer MEDICARE ==
[~2024-01-04] MED LIST changes: +ISOVUE-300 61% 100ML VIAL As Ordered ONE; +LIDOCAINE 1% MDV 20ML VIAL As Ordered ONE; +methylPREDNISolone SUSP 40MG/ML 1ML VIAL (DEPO MEDROL) As Ordered ONE
== END ==
LOC: M RAD 14:41
PROVIDERS: ATTEND Physician Assistant
DX: M19.011 Primary osteoarthritis, right shoulder (principal)
CPT/HCPCS: 20610; 77002; J1010; Q9967

== ENCOUNTER → 2024-02-05 | Outpatient (REF) | payer MEDICARE ==
[~2024-02-05] MED LIST changes: -ISOVUE-300 61% 100ML VIAL As Ordered ONE; -LIDOCAINE 1% MDV 20ML VIAL As Ordered ONE; -methylPREDNISolone SUSP 40MG/ML 1ML VIAL (DEPO MEDROL) As Ordered ONE
[2024-02-05 12:06] LABS: HEMATOCRIT 39.9 % (42.0-52.0); HEMOGLOBIN 13.8 g/dl (13.5-17.5); MEAN CORPUSCULAR HEMOGLOBIN 32.3 pg (27.0-33.0); MEAN CORPUSCULAR HGB CONC 34.6 g/dl (32.0-36.5); MEAN CORPUSCULAR VOLUME 93.4 fl (80.0-96.0); PLATELET COUNT, AUTOMATED 184 10^3/uL (150-450); RED BLOOD COUNT 4.27 10^6/uL (4.30-6.10); WHITE BLOOD COUNT 5.3 10^3/uL (4.0-10.0)
[2024-02-05 12:22] LABS: APPEARANCE, URINE CLEAR (CLEAR); BACTERIA, URINE AUTO NEGATIVE (NEGATIVE); BILIRUBIN, URINE AUTO NEGATIVE (NEGATIVE); BLOOD, URINE BLOOD NEGATIVE (NEGATIVE); COLOR, URINE YELLOW (YELLOW); GLUCOSE, URINE (UA) AUTO NEGATIVE (NEGATIVE); KETONE, URINE AUTO NEGATIVE (NEGATIVE); LEUKOCYTE ESTERASE, URINE AUTO NEGATIVE (NEGATIVE); MUCUS, URINE SMALL (NEGATIVE); NITRITE, URINE AUTO NEGATIVE (NEGATIVE); PROTEIN, URINE AUTO NEGATIVE (NEGATIVE); RBC, URINE AUTO 1 /HPF (0-3); SPECIFIC GRAVITY URINE AUTO 1.024 (1.002-1.035); SQUAMOUS EPITHELIAL CELL UR AU 0 /HPF (0-6); WBC, URINE AUTO 0 /HPF (0-3)
[2024-02-05 12:26] LABS: ALBUMIN 3.6 G/DL (3.2-5.2); ALKALINE PHOSPHATASE 42 U/L (46-116); ALT/SGPT 19 U/L (7.0-40); AST/SGOT 14 U/L (<34); BILIRUBIN,TOTAL 0.9 MG/DL (0.3-1.2); BLOOD UREA NITROGEN 18 MG/DL (9-23); CALCIUM LEVEL 9.5 MG/DL (8.3-10.6); CARBON DIOXIDE LEVEL 32 MMOL/L (20-31); CHLORIDE LEVEL 105 MMOL/L (98-107); CHOLESTEROL LEVEL 144 MG/DL (<200); CHOLESTEROL RISK RATIO 2.14 (<5); CREATININE FOR GFR 0.93 MG/DL (0.70-1.30); GLOMERULAR FILTRATION RATE > 60.0 (>42); GLUCOSE, FASTING 109 MG/DL (74-106); HDL CHOLESTEROL 67.2 MG/DL (>40); NON-HDL-C 76.8 MG/DL; POTASSIUM SERUM 3.6 MMOL/L (3.5-5.1); PROSTATIC SPECIFIC AG MONITOR 2.66 NG/ML (< 4.00); SODIUM LEVEL 140 MMOL/L (136-145); TOTAL PROTEIN 6.1 G/DL (5.7-8.2); TRIGLYCERIDES LEVEL 84 MG/DL (<150)
[2024-02-05 13:07] LABS: HEPATITIS C VIRUS ABY INDEX < 0.02 INDEX (<0.8)
== END ==
LOC: M SFHCCLAY 08:36
PROVIDERS: ATTEND Family Medicine
DX: Z11.59 Encounter for screening for other viral diseases (principal); R97.20 Elevated prostate specific antigen [PSA]; I10 Essential (primary) hypertension; G47.33 Obstructive sleep apnea (adult) (pediatric); K21.9 Gastro-esophageal reflux disease without esophagitis; Z12.5 Encounter for screening for malignant neoplasm of prostate; N30.01 Acute cystitis with hematuria; E29.1 Testicular hypofunction
CPT/HCPCS: 80053; 80061; 81001; 84153; 84403; 85027; 86803; G0103

== ENCOUNTER → 2024-02-05 | Outpatient (REF) | payer MEDICARE ==
[2024-02-05 12:26] LABS: PSA SCREENING 2.83 NG/ML (< 4.00)
== END ==
LOC: M LABDRAWC 11:03
PROVIDERS: ATTEND Nurse Practitioner Family
DX: E29.1 Testicular hypofunction (principal); Z12.5 Encounter for screening for malignant neoplasm of prostate

== ENCOUNTER → 2024-02-07 | Outpatient (REF) | payer MEDICARE | LOC: M LABDRAWC 17:30 | PROVIDERS: ATTEND Nurse Practitioner Family | DX: E29.1 Testicular hypofunction (principal) ==

== ENCOUNTER → 2024-04-02 | Outpatient (REF) | payer MEDICARE | LOC: M SFHCDERM 17:25 | PROVIDERS: ATTEND Physician Assistant | DX: C44.519 Basal cell carcinoma of skin of other part of trunk (principal) ==

== ENCOUNTER → 2024-04-03 | Outpatient (REF) | payer MEDICARE ==
[2024-04-03 18:04] LABS: HEMATOCRIT 41.7 % (42.0-52.0); HEMOGLOBIN 14.9 g/dl (13.5-17.5)
[2024-04-03 18:24] LABS: PSA SCREENING 3.17 NG/ML (< 4.00)
== END ==
LOC: M LAB REF 16:43
PROVIDERS: ATTEND Nurse Practitioner Family
DX: E29.1 Testicular hypofunction (principal); Z12.5 Encounter for screening for malignant neoplasm of prostate
CPT/HCPCS: 36415; 84403; 85014; 85018; G0103

== ENCOUNTER → 2024-04-09 | Outpatient (CLI) | payer MEDICARE | LOC: M CLY 15:34 | PROVIDERS: ATTEND Family Medicine | DX: R05.3 Chronic cough (principal) ==

== ENCOUNTER → 2024-04-22 | Outpatient (REF) | payer MEDICARE ==
[2024-04-23 13:30] LABS: APPEARANCE, URINE CLEAR (CLEAR); BACTERIA, URINE AUTO NEGATIVE (NEGATIVE); BILIRUBIN, URINE AUTO NEGATIVE (NEGATIVE); BLOOD, URINE BLOOD NEGATIVE (NEGATIVE); COLOR, URINE YELLOW (YELLOW); GLUCOSE, URINE (UA) AUTO NEGATIVE (NEGATIVE); KETONE, URINE AUTO NEGATIVE (NEGATIVE); LEUKOCYTE ESTERASE, URINE AUTO NEGATIVE (NEGATIVE); MUCUS, URINE SMALL (NEGATIVE); NITRITE, URINE AUTO NEGATIVE (NEGATIVE); PROTEIN, URINE AUTO NEGATIVE (NEGATIVE); RBC, URINE AUTO 1 /HPF (0-3); SPECIFIC GRAVITY URINE AUTO 1.015 (1.002-1.035); SQUAMOUS EPITHELIAL CELL UR AU 0 /HPF (0-6); UROBILINOGEN, URINE AUTO 0.2 mg/dL (0.0-2.0); WBC, URINE AUTO 0 /HPF (0-3)
== END ==
LOC: M SFHCCLAY 14:19
PROVIDERS: ATTEND Family Medicine
DX: R30.0 Dysuria (principal)

== ENCOUNTER → 2024-04-29 | Outpatient (REF) | payer MEDICARE | LOC: M SFHCDERM 17:54 | PROVIDERS: ATTEND Physician Assistant | DX: C44.519 Basal cell carcinoma of skin of other part of trunk (principal); L90.5 Scar conditions and fibrosis of skin; L85.9 Epidermal thickening, unspecified ==

== ENCOUNTER → 2024-10-30 | Outpatient (CLI) | payer MEDICARE | LOC: M CLY 13:45 | PROVIDERS: ATTEND Physician Assistant Medical | DX: R19.4 Change in bowel habit (principal); R10.30 Lower abdominal pain, unspecified; R97.20 Elevated prostate specific antigen [PSA] ==

== ENCOUNTER → 2024-10-30 | Outpatient (REF) | payer MEDICARE ==
[2024-10-30 18:04] LABS: PROSTATIC SPECIFIC AG MONITOR 1.94 NG/ML (< 4.00)
[2024-10-30 18:05] LABS: HEMOGLOBIN 14.5 g/dl (13.5-17.5)
== END ==
LOC: M LABDRAWC 16:51
PROVIDERS: ATTEND Nurse Practitioner Family
DX: E29.1 Testicular hypofunction (principal)

== ENCOUNTER → 2025-04-08 | Outpatient (CLI) | payer MEDICARE ==
[~2025-04-08] MED LIST changes: +TAMS-18 PO
== END ==
LOC: M CLY 10:04
PROVIDERS: ATTEND Physician Assistant
DX: R07.89 Other chest pain (principal)

== ENCOUNTER → 2025-04-13 | Outpatient (REF) | payer MEDICARE | LOC: M LAB REF 18:36 | PROVIDERS: ATTEND Nurse Practitioner Family | DX: E29.1 Testicular hypofunction (principal) ==

== ENCOUNTER → 2025-04-13 | Outpatient (REF) | payer MEDICARE ==
[2025-04-13 18:42] LABS: ALT/SGPT 10.0 U/L (7.0-40); AST/SGOT 17.0 U/L (<34); CALCIUM LEVEL 9.5 MG/DL (8.3-10.6); CARBON DIOXIDE LEVEL 30.0 MMOL/L (20-31); CHLORIDE LEVEL 105.0 MMOL/L (98-107); CHOLESTEROL LEVEL 121.0 MG/DL (<200); CHOLESTEROL RISK RATIO 1.94 (<5); CREATININE FOR GFR 0.99 MG/DL (0.70-1.30); GLOMERULAR FILTRATION RATE 78.0 (>42); LDL CHOLESTEROL 49.5 MG/DL (<100); NON-HDL-C 58.7 MG/DL; POTASSIUM SERUM 4.5 MMOL/L (3.5-5.1); SODIUM LEVEL 144.0 MMOL/L (136-145); TRIGLYCERIDES LEVEL 46.0 MG/DL (<150)
[2025-04-13 18:56] LABS: ESTIMATED AVERAGE GLUCOSE 94.0 MG/DL (60-110)
== END ==
LOC: M SFHCCLAY 10:00
PROVIDERS: ATTEND Physician Assistant
DX: J01.00 Acute maxillary sinusitis, unspecified (principal); I10 Essential (primary) hypertension; K21.9 Gastro-esophageal reflux disease without esophagitis; G47.33 Obstructive sleep apnea (adult) (pediatric); J30.89 Other allergic rhinitis; E29.1 Testicular hypofunction; N52.1 Erectile dysfunction due to diseases classified elsewhere; Z12.5 Encounter for screening for malignant neoplasm of prostate; N39.43 Post-void dribbling